=== PATIENT | female | born 1995 | race Caucasian/White ===

== ENCOUNTER 2022-02-07 20:21 | Emergency (ER) | payer BC ==
[2022-02-07 21:14] VITALS: TEMP 98.8
[2022-02-07] MEDS ORDERED: SODIUM CHLORIDE 0.9% 1,000 ML IV STA (22:05)
--- NOTE | 2022-02-07 22:09 | ED ---
Syncope HPI - General Chief Complaint: Syncope Stated Complaint: Fainted x 2 Time Seen by Provider: 02/07/22 21:53 Source: patient, RN notes reviewed Mode of arrival: ambulatory Limitations: no limitations - History of Present Illness Initial Comments: This patient presents to the emergency back complaining of 2 syncopal episodes today. She states for some happened at home when she was walking. Patient states she felt like she had a ramirez into her head. She had white count vision and then felt lightheaded with palpitations. There is no complete loss of consciousness. She then went shopping at a local store and was walking and. Patient states she bent over to pick something up and stood back up and had lightheadedness again with some blackout vision with presyncopal symptoms.. She states she might run out for a few seconds. There was no injury. Patient continues to have intermittent palpitations at times. She denies any pain. Patient previously had this 5 years ago when she was in [place] and was assessed by cardiology. No headache, no fever or chills, no changes in vision or hearing, no sore throat or difficulty with speech, no neck pain, no chest pain or shortness of breath, no abdominal pain, no nausea or vomiting, no changes in urination or bowel movements, no numbness or tingling, no extremity pain, no skin rashes or lesions. Note that the patient was diagnosed with COVID-19 2 weeks ago and still has a cough. Patient states she previously has had low blood pressure MD Complaint: felt faint - Related Data Allergies Allergy/AdvReac Type Severity Reaction Status Date / Time azithromycin [From Zithromax] Allergy Rash/Hives Verified 02/07/22 21:14 cefuroxime [From Ceftin] Allergy Nausea & Verified 02/07/22 21:14 Vomiting Review of Systems ROS Statement: Those systems with pertinent positive or pertinent negative responses have been documented in the HPI. ROS Other: All systems not noted in ROS Statement are negative. Past Medical History Additional Past Medical History / Comment(s): Ciliac History of Any Multi-Drug Resistant Organisms: None Reported Additional Past Surgical History / Comment(s): Skin CA Past Psychological History: No Psychological Hx Reported Smoking Status: Never smoker Past Alcohol Use History: None Reported Past Drug Use History: None Reported General Exam - General Exam Comments Initial Comments: Cranial nerves II through XII intact. Patient does not appear to be ill or toxic. Limitations: no limitations General appearance: alert, in no apparent distress Head exam: Present: atraumatic, normocephalic, normal inspection Eye exam: Present: normal appearance, PERRL, EOMI. Absent: scleral icterus, conjunctival injection, periorbital swelling ENT exam: Present: normal exam, mucous membranes moist Neck exam: Present: normal inspection. Absent: tenderness, meningismus, lymphadenopathy Respiratory exam: Present: normal lung sounds bilaterally. Absent: respiratory distress, wheezes, rales, rhonchi, stridor Cardiovascular Exam: Present: regular rate, normal rhythm, normal heart sounds. Absent: systolic murmur, diastolic murmur, rubs, gallop, clicks GI/Abdominal exam: Present: soft, normal bowel sounds. Absent: distended, tenderness, guarding, rebound, rigid Extremities exam: Present: normal inspection, full ROM, normal capillary refill. Absent: tenderness, pedal edema, joint swelling, calf tenderness Back exam: Present: normal inspection Neurological exam: Present: alert, oriented X3, CN II-XII intact Psychiatric exam: Present: normal affect, normal mood Skin exam: Present: warm, dry, intact, normal color. Absent: rash Course Vital Signs 02/07/22 02/07/22 21:09 22:54 Temperature 98.8 F Pulse Rate 89 74 Respiratory 20 18 Rate Blood Pressure 115/84 104/74 O2 Sat by Pulse 100 97 Oximetry - Reevaluation(s) Reevaluation #1: 02/07/22 23:51 Medical record is reviewed Symptoms are improved here in the emergency department Patient is informed of results and questions answered Patient in no distress EKG Findings - EKG Comments: EKG Findings:: EKG done at 2122 and read by the ED attending physician reveals sinus rhythm with a rate of 72, normal intervals, no acute ST or Q-wave changes. Minimal RSR pattern in V1 and V2. Medical Decision Making - Medical Decision Making Discussed all findings with the patient. Discussed treatment plan. Discussed need for follow-up. Patient was pending urinalysis. Patient was feeling better and did not want to wait. Remainder of the workup was essentially negative. We'll give the patient follow-up with both cardiology and primary care physician. Patient told to refrain from any strenuous activity until follow-up. Patient concurs with this treatment plan. All questions answered. Patient was told to return to the ER for any signs or symptoms worsen. Told to return immediately if any other problems arise. All questions answered. Treat ment plan discussed. Patient in agreement Every effort has been made to ensure accuracy of this dictation. However, due to the limitations of electronic medical records and dictation devices, errors in charting still occur. The case was discussed in detail with ED attending physician. Presentation, findings, treatment plan discussed in detail. Log Cutter, Dr. Petty - Lab Data Result diagrams: 02/07/22 22:34 02/07/22 22:34 Lab Results 02/07/22 02/07/22 02/07/22 Range/Units 22:34 22:34 22:34 WBC 4.9 (3.8-10.6) k/uL RBC 4.84 (3.80-5.40) m/uL Hgb 14.6 (11.4-16.0) gm/dL Hct 45.0 (34.0-46.0) % MCV 93.0 (80.0-100.0) fL MCH 30.1 (25.0-35.0) pg MCHC 32.4 (31.0-37.0) g/dL RDW 12.7 (11.5-15.5) % Plt Count 221 (150-450) k/uL MPV 7.7 Neutrophils % 52 % Lymphocytes % 38 % Monocytes % 6 % Eosinophils % 1 % Basophils % 2 % Neutrophils # 2.6 (1.3-7.7) k/uL Lymphocytes # 1.9 (1.0-4.8) k/uL Monocytes # 0.3 (0-1.0) k/uL Eosinophils # 0.0 (0-0.7) k/uL Basophils # 0.1 (0-0.2) k/uL D-Dimer (<0.60) mg/L FEU Sodium 140 (137-145) mmol/L Potassium 3.6 (3.5-5.1) mmol/L Chloride 102 (98-107) mmol/L Carbon Dioxide 27 (22-30) mmol/L Anion Gap 11 mmol/L BUN 10 (7-17) mg/dL Creatinine 0.64 (0.52-1.04) mg/dL Est GFR (CKD-EPI)AfAm >90 (>60 ml/min/1.73 sqM) Est GFR (CKD-EPI)NonAf >90 (>60 ml/min/1.73 sqM) Glucose 90 (74-99) mg/dL Calcium 9.2 (8.4-10.2) mg/dL Magnesium 2.0 (1.6-2.3) mg/dL Total Bilirubin 0.6 (0.2-1.3) mg/dL AST 24 (14-36) U/L ALT 19 (4-34) U/L Alkaline Phosphatase 60 (38-126) U/L Troponin I <0.012 (0.000-0.034) ng/mL Total Protein 8.6 H (6.3-8.2) g/dL Albumin 5.1 H (3.5-5.0) g/dL 02/07/22 Range/Units 22:34 WBC (3.8-10.6) k/uL RBC (3.80-5.40) m/uL Hgb (11.4-16.0) gm/dL Hct (34.0-46.0) % MCV (80.0-100.0) fL MCH (25.0-35.0) pg MCHC (31.0-37.0) g/dL RDW (11.5-15.5) % Plt Count (150-450) k/uL MPV Neutrophils % % Lymphocytes % % Monocytes % % Eosinophils % % Basophils % % Neutrophils # (1.3-7.7) k/uL Lymphocytes # (1.0-4.8) k/uL Monocytes # (0-1.0) k/uL Eosinophils # (0-0.7) k/uL Basophils # (0-0.2) k/uL D-Dimer <0.17 (<0.60) mg/L FEU Sodium (137-145) mmol/L Potassium (3.5-5.1) mmol/L Chloride (98-107) mmol/L Carbon Dioxide (22-30) mmol/L Anion Gap mmol/L BUN (7-17) mg/dL Creatinine (0.52-1.04) mg/dL Est GFR (CKD-EPI)AfAm (>60 ml/min/1.73 sqM) Est GFR (CKD-EPI)NonAf (>60 ml/min/1.73 sqM) Glucose (74-99) mg/dL Calcium (8.4-10.2) mg/dL Magnesium (1.6-2.3) mg/dL Total Bilirubin (0.2-1.3) mg/dL AST (14-36) U/L ALT (4-34) U/L Alkaline Phosphatase (38-126) U/L Troponin I (0.000-0.034) ng/mL Total Protein (6.3-8.2) g/dL Albumin (3.5-5.0) g/dL - Radiology Data Radiology results: report reviewed, image reviewed Disposition Clinical Impression: Syncope Disposition: HOME SELF-CARE Condition: Good Instructions (If sedation given, give patient instructions): Syncope (ED) Additional Instructions: No strenuous activity until follow-up and recheck. Follow-up with your regular physician as directed. Return to the ER immediately if any symptoms worsen, new symptoms arise, or any other problems develop. Is patient prescribed a controlled substance at d/c from ED?: No Referrals: Brooke Quinn MD [STAFF PHYSICIAN] - As Soon As Possible Dayami Noriega MD [STAFF PHYSICIAN] - As Soon As Possible Time of Disposition: 23:49
[2022-02-07 22:39] LABS: Basophils # (A) 0.1 k/uL (0-0.2); Basophils % (A) 2 %; Eosinophils % (A) 1 %; HGB 14.6 gm/dL (11.4-16.0); Lymphocytes # (A) 1.9 k/uL (1.0-4.8); Lymphocytes % (A) 38 %; MCH 30.1 pg (25.0-35.0); MCHC 32.4 g/dL (31.0-37.0); Mean Platelet Volume 7.7; Monocytes # (A) 0.3 k/uL (0-1.0); Monocytes % (A) 6 %; Neutrophils # (A) 2.6 k/uL (1.3-7.7); Neutrophils % (A) 52 %; Platelet Count 221 k/uL (150-450); RBC 4.84 m/uL (3.80-5.40); RDW 12.7 % (11.5-15.5); WBC 4.9 k/uL (3.8-10.6)
--- NOTE | 2022-02-07 22:42 | XR ---
EXAMINATION TYPE: XR chest 1V portable DATE OF EXAM: 02/07/2022 COMPARISON: NONE HISTORY: Syncope TECHNIQUE: Single view FINDINGS: Heart is normal. Lungs are clear of infiltrate. No heart failure. No hilar mass. Bony thora x is intact. There are chest leads. IMPRESSION: No active cardiopulmonary disease. Normal heart.
[2022-02-07 22:54] LABS: ALT 19 U/L (4-34); AST 24 U/L (14-36); African American GFR (CKD) >90 (>60 ml/min/1.73 sqM); Albumin 5.1 g/dL (3.5-5.0); Alkaline Phosphatase 60 U/L (38-126); Anion Gap 11 mmol/L; Blood Urea Nitrogen 10 mg/dL (7-17); Calcium 9.2 mg/dL (8.4-10.2); Carbon Dioxide 27 mmol/L (22-30); Chloride 102 mmol/L (98-107); Glucose 90 mg/dL (74-99); Non-African American GFR(CKD) >90 (>60 ml/min/1.73 sqM); Potassium 3.6 mmol/L (3.5-5.1); Sodium 140 mmol/L (137-145); Total Bilirubin 0.6 mg/dL (0.2-1.3); Total Protein 8.6 g/dL (6.3-8.2)
[2022-02-07 23:52] VITALS: BP 101/51; PULSE 71; RESP 16
== END 2022-02-07 23:52 | disposition home or self-care (01) ==
LOC: EC 20:21
DX: R55 Syncope and collapse (principal); Z88.1 Allergy status to other antibiotic agents
CPT/HCPCS: 71045; 80053; 83735; 84484; 85025; 85379; 93005

== ENCOUNTER 2022-04-28 19:35 | Emergency (ER) | payer BC ==
[2022-04-28] MEDS ORDERED: SODIUM CHLORIDE 0.9% 1,000 ML IV STA (19:48)
[2022-04-28 20:01] VITALS: RESP 16; TEMP 98.5
[2022-04-28 20:03] LABS: Basophils % (A) 1 %; Eosinophils # (A) 0.1 k/uL (0-0.7); Eosinophils % (A) 2 %; HCT 41.6 % (34.0-46.0); HGB 14.2 gm/dL (11.4-16.0); Lymphocytes # (A) 1.7 k/uL (1.0-4.8); Lymphocytes % (A) 32 %; MCH 32.3 pg (25.0-35.0); MCV 95.1 fL (80.0-100.0); Mean Platelet Volume 7.6; Monocytes # (A) 0.2 k/uL (0-1.0); Monocytes % (A) 4 %; Neutrophils # (A) 3.1 k/uL (1.3-7.7); Neutrophils % (A) 60 %; Platelet Count 233 k/uL (150-450); RBC 4.38 m/uL (3.80-5.40); RDW 12.7 % (11.5-15.5); WBC 5.3 k/uL (3.8-10.6)
[2022-04-28 20:13] LABS: Prothrombin Time 10.7 sec (9.0-12.0)
[2022-04-28 20:19] LABS: ALT 16 U/L (4-34); AST 25 U/L (14-36); African American GFR (CKD) >90 (>60 ml/min/1.73 sqM); Alkaline Phosphatase 53 U/L (38-126); Blood Urea Nitrogen 12 mg/dL (7-17); Calcium 9.7 mg/dL (8.4-10.2); Carbon Dioxide 24 mmol/L (22-30); Chloride 101 mmol/L (98-107); Glucose 108 mg/dL (74-99); Magnesium 1.8 mg/dL (1.6-2.3); Non-African American GFR(CKD) >90 (>60 ml/min/1.73 sqM); Total Bilirubin 0.3 mg/dL (0.2-1.3)
--- NOTE | 2022-04-28 20:25 | XR ---
EXAMINATION TYPE: XR chest 2V DATE OF EXAM: 04/28/2022 COMPARISON: 02/07/2022 HISTORY: Syncope TECHNIQUE: 2 view FINDINGS: Heart and mediastinum are normal. Lungs are clear. Diaphragm is normal. Bony thorax is intact. IMPRESSION: Normal chest. No change.
--- NOTE | 2022-04-28 20:33 | ED ---
General Adult HPI - General Chief complaint: Syncope Stated complaint: Syncope Time Seen by Provider: 04/28/22 19:44 Source: patient, EMS, RN notes reviewed, old records reviewed Mode of arrival: EMS Limitations: no limitations - History of Present Illness Initial comments: This is a well-appearing 27-year-old female who presents with another episode of syncope. Patient states that she was at home alone tonight and had another syncopal episode. She was seen in the ER in January for syncope as well. She has had multiple cardiac workups in the past when this first started when she was younger. She has had echoes and lab work and also holter monitors. She believes this is something neurological and has an appointment coming up at the end of this month with a neurologist. She has seen her primary care doctor who has done blood tests but could not determine what causes her syncopal episodes. Patient denies any medication on a daily basis. She is a nonsmoker. She denies any chest pain or difficulty breathing. No nausea vomiting diarrhea or fevers. -: month(s) Radiation: non-radiation Severity scale (1-10): 0 Consistency: now resolved Improves with: none Worsens with: none Associated Symptoms: syncope, other (Dizziness) - Related Data Allergies Allergy/AdvReac Type Severity Reaction Status Date / Time azithromycin [From Zithromax] Allergy Rash/Hives Verified 02/07/22 21:14 cefuroxime [From Ceftin] Allergy Nausea & Verified 02/07/22 21:14 Vomiting Review of Systems ROS Statement: Those systems with pertinent positive or pertinent negative responses have been documented in the HPI. ROS Other: All systems not noted in ROS Statement are negative. Past Medical History Additional Past Medical History / Comment(s): Ciliac History of Any Multi-Drug Resistant Organisms: None Reported Additional Past Surgical History / Comment(s): Skin CA Past Psychological History: No Psychological Hx Reported Smoking Status: Never smoker Past Alcohol Use History: None Reported Past Drug Use History: None Reported General Exam Limitations: no limitations General appearance: alert, in no apparent distress Head exam: Present: atraumatic, normocephalic, normal inspection Eye exam: Present: normal appearance, EOMI. Absent: scleral icterus, conjunctival injection, nystagmus, periorbital swelling, periorbital tenderness ENT exam: Present: normal exam, normal oropharynx, mucous membranes moist Neck exam: Present: normal inspection, full ROM. Absent: tenderness, meningismus, lymphadenopathy, thyromegaly Respiratory exam: Present: normal lung sounds bilaterally. Absent: respiratory distress, accessory muscle use Cardiovascular Exam: Present: regular rate, normal rhythm, normal heart sounds, other (No carotid bruit). Absent: JVD GI/Abdominal exam: Present: soft. Absent: distended, tenderness, rigid Extremities exam: Present: full ROM, normal capillary refill. Absent: tenderness, pedal edema Back exam: Present: full ROM. Absent: tenderness, CVA tenderness (R), CVA tenderness (L), rash noted Neurological exam: Present: alert, oriented X3, CN II-XII intact Expanded Patient oriented to: Present: person, place, time Speech: Present: fluid speech Cranial nerves: EOM's Intact: Normal, Gag Reflex: Normal, Tongue Deviation: Normal Cerebellar function: Finger to Nose: Normal, Heel to Marte: Normal Motor strength exam: RUE: 5, LUE: 5, RLE: 5, LLE: 5 Eye Response: (4) open spontaneously Motor Response: (6) obeys commands Verbal Response: (5) oriented [place] Total: 15 Psychiatric exam: Present: normal affect, normal mood Skin exam: Present: warm, dry, normal color. Absent: cyanosis, diaphoretic, petechiae, pallor Course Vital Signs 04/28/22 04/28/22 19:58 21:53 Temperature 98.5 F 98.5 F Pulse Rate 90 74 Respiratory 16 16 Rate Blood Pressure 124/80 113/73 O2 Sat by Pulse 100 100 Oximetry EKG Findings - EKG Results: EKG: sinus rhythm (Ventricular rate 84, NE interval 0.140, QRS 0.101, QTC 0.377), not changed from: (January 2022) Medical Decision Making - Medical Decision Making Patient presents to the emergency room with another episode of syncope today. She states that she has seen her primary care doctor and cardiology and is now scheduled to see neurology at the end of this month. Patient has no focal neurological deficits, labs are normal, EKG sinus rhythm. No evidence of head injury. Patient was monitored in the emergency room with no complaints. Vital signs are stable. She denies any headaches, visual changes, nausea, vomiting or fevers. She denies any chance of . She denies any family history of sudden cardiac . Vital signs are stable. At this time I do not have a cause for the patient's repeated episodes of syncope. She will be directed to follow up with her primary care doctor and neurology as scheduled. She is agreeable to this plan of care. Case discussed with Dr Hodges, - Lab Data Result diagrams: 04/28/22 19:55 04/28/22 19:55 Lab Results 04/28/22 04/28/22 04/28/22 Range/Units 19:55 19:55 19:55 WBC 5.3 (3.8-10.6) k/uL RBC 4.38 (3.80-5.40) m/uL Hgb 14.2 (11.4-16.0) gm/dL Hct 41.6 (34.0-46.0) % MCV 95.1 (80.0-100.0) fL MCH 32.3 (25.0-35.0) pg MCHC 34.0 (31.0-37.0) g/dL RDW 12.7 (11.5-15.5) % Plt Count 233 (150-450) k/uL MPV 7.6 Neutrophils % 60 % Lymphocytes % 32 % Monocytes % 4 % Eosinophils % 2 % Basophils % 1 % Neutrophils # 3.1 (1.3-7.7) k/uL Lymphocytes # 1.7 (1.0-4.8) k/uL Monocytes # 0.2 (0-1.0) k/uL Eosinophils # 0.1 (0-0.7) k/uL Basophils # 0.0 (0-0.2) k/uL PT 10.7 (9.0-12.0) sec INR 1.0 (<1.2) APTT 24.0 (22.0-30.0) sec Sodium 140 (137-145) mmol/L Potassium 4.0 (3.5-5.1) mmol/L Chloride 101 (98-107) mmol/L Carbon Dioxide 24 (22-30) mmol/L Anion Gap 15 mmol/L BUN 12 (7-17) mg/dL Creatinine 0.59 (0.52-1.04) mg/dL Est GFR (CKD-EPI)AfAm >90 (>60 ml/min/1.73 sqM) Est GFR (CKD-EPI)NonAf >90 (>60 ml/min/1.73 sqM) Glucose 108 H (74-99) mg/dL Calcium 9.7 (8.4-10.2) mg/dL Magnesium 1.8 (1.6-2.3) mg/dL Total Bilirubin 0.3 (0.2-1.3) mg/dL AST 25 (14-36) U/L ALT 16 (4-34) U/L Alkaline Phosphatase 53 (38-126) U/L Troponin I (0.000-0.034) ng/mL Total Protein 8.0 (6.3-8.2) g/dL Albumin 5.0 (3.5-5.0) g/dL 04/28/22 Range/Units 19:55 WBC (3.8-10.6) k/uL RBC (3.80-5.40) m/uL Hgb (11.4-16.0) gm/dL Hct (34.0-46.0) % MCV (80.0-100.0) fL MCH (25.0-35.0) pg MCHC (31.0-37.0) g/dL RDW (11.5-15.5) % Plt Count (150-450) k/uL MPV Neutrophils % % Lymphocytes % % Monocytes % % Eosinophils % % Basophils % % Neutrophils # (1.3-7.7) k/uL Lymphocytes # (1.0-4.8) k/uL Monocytes # (0-1.0) k/uL Eosinophils # (0-0.7) k/uL Basophils # (0-0.2) k/uL PT (9.0-12.0) sec INR (<1.2) APTT (22.0-30.0) sec Sodium (137-145) mmol/L Potassium (3.5-5.1) mmol/L Chloride (98-107) mmol/L Carbon Dioxide (22-30) mmol/L Anion Gap mmol/L BUN (7-17) mg/dL Creatinine (0.52-1.04) mg/dL Est GFR (CKD-EPI)AfAm (>60 ml/min/1.73 sqM) Est GFR (CKD-EPI)NonAf (>60 ml/min/1.73 sqM) Glucose (74-99) mg/dL Calcium (8.4-10.2) mg/dL Magnesium (1.6-2.3) mg/dL Total Bilirubin (0.2-1.3) mg/dL AST (14-36) U/L ALT (4-34) U/L Alkaline Phosphatase (38-126) U/L Troponin I <0.012 (0.000-0.034) ng/mL Total Protein (6.3-8.2) g/dL Albumin (3.5-5.0) g/dL Disposition Clinical Impression: Syncope Disposition: HOME SELF-CARE Condition: Good Additional Instructions: I recommend changing your position slowly from sitting to standing. Please follow-up with your primary care doctor next week and keep your appointment with your neurologist as scheduled. Is patient prescribed a controlled substance at d/c from ED?: No Referrals: Nonstaff,Physician [Primary Care Provider] - 1-2 days Time of Disposition: 21:35
[2022-04-28 20:48] LABS: Anion Gap 15 mmol/L; Sodium 140 mmol/L (137-145)
[2022-04-28 21:54] VITALS: BP 113/73; PULSE 74
== END 2022-04-28 21:53 | disposition home or self-care (01) ==
LOC: EC 19:35
DX: R55 Syncope and collapse (principal); Z88.1 Allergy status to other antibiotic agents
CPT/HCPCS: 36415; 71046; 80053; 83735; 84484; 85025; 85610; 85730; 93005; 96360; 99284